=== PATIENT | male | born 1975 | race Caucasian/White ===

== ENCOUNTER 2017-05-21 02:06 | Emergency (ER) | payer BC ==
[2017-05-21 02:32] VITALS: BP 158/88; PULSE 73; TEMP 98.7; BMI 23.7
[2017-05-21] MEDS ORDERED: PENICILLIN V POTASSIUM 500 MG TABLET PO ONE (03:46)
[2017-05-21] MEDS ORDERED: IBUPROFEN 400 MG TABLET (FP) PO ONE ×2 (03:46→04:21)
--- NOTE | 2017-05-21 03:46 | PDOC ---
History of Present Illness - General History Source: Patient - History of Present Illness Initial Comments: 05/21/17 03:48 The patient is a year old male, with a significant past medical history of htn, who presents to the emergency department with sore throat and subjective fever. He reports difficulty swallowing secondary to throat pain. He denies sick contacts. He denies use of OTC medication for his current symptoms. He denies chest pain, shortness of breath, headache and dizziness. He denies chills, nausea, vomit, diarrhea and constipation. He denies dysuria, frequency, urgency and hematuria. Allergies: NKDA <Cherie Van - Last Filed: 05/21/17 03:48> - General History Source: Patient <Juan RamonLev pak - Last Filed: 05/21/17 04:31> - General Chief Complaint: Sore Throat Stated Complaint: THROAT PROBLEM Time Seen by Provider: 05/21/17 03:41 Past History <Cherie Van - Last Filed: 05/21/17 03:48> - Suicide/Smoking/Psychosocial Hx Smoking History: Never smoked Have you smoked in the past 12 months: No Information on smoking cessation initiated: No Hx Alcohol Use: No Drug/Substance Use Hx: No <Lev Cottrell - Last Filed: 05/21/17 04:31> - Past Medical History Allergies/Adverse Reactions: Allergies Allergy/AdvReac Type Severity Reaction Status Date / Time No Known Allergies Allergy Verified 05/21/17 02:30 Home Medications: Ambulatory Orders Ibuprofen 800 mg PO TID #30 tablet 05/21/17 Penicillin V Potassium [Pen Vee K -] 500 mg PO QID #28 tablet 05/21/17 Review of Systems - Review of Systems Able to Perform ROS?: Yes Comments:: 05/21/17 03:48 CONSTITUTIONAL: (+) subjective fever, Absent: chills, diaphoresis, generalized weakness, malaise, loss of appetite HEENT: (+) throat pain, difficulty swallowing, Absent: rhinorrhea, nasal congestion, throat swelling, mouth swelling, ear pain , eye pain, visual Changes CARDIOVASCULAR: Absent: chest pain, syncope, palpitations, irregular heart rate, lightheadedness , peripheral edema RESPIRATORY: Absent: cough, shortness of breath, dyspnea with exertion, orthopnea, wheezing, stridor, hemoptysis GASTROINTESTINAL: Absent: abdominal pain, abdominal distension, nausea, vomiting, diarrhea, constipation, melena, hematochezia GENITOURINARY: Absent: dysuria, frequency, urgency, hesitancy, hematuria, flank pain, genital pain MUSCULOSKELETAL: Absent: myalgia, arthralgia, joint swelling SKIN: Absent: rash, itching, pallor HEMATOLOGIC/IMMUNOLOGIC: Absent: easy bleeding, easy bruising, lymphadenopathy, frequent infections ENDOCRINE: Absent: unexplained weight gain, unexplained weight loss, heat intolerance, cold intolerance NEUROLOGIC: Absent: headache, focal weakness or paresthesias, dizziness, unsteady gait, seizure, mental status changes, bladder or bowel incontinence PSYCHIATRIC: Absent: anxiety, depression, suicidal or homicidal ideation, hallucinations. <Cherie Van - Last Filed: 05/21/17 03:48> *Physical Exam - Vital Signs Last Vital Signs Temp Pulse Resp BP Pulse Ox 98.7 F 73 20 158/88 100 05/21/17 02:30 05/21/17 02:30 05/21/17 02:30 05/21/17 02:30 05/21/17 02:30 - Physical Exam Comments: 05/21/17 03:51 GENERAL: Well developed, well nourished. Awake and alert. No acute distress. HEENT: (+) Bilateral enlarged erythematous tonsils with yellow exudates. No drooling. No hot potato voice. No stridor. Normocephalic, atraumatic. PERRLA, EOMI. No conjunctival pallor. Sclera are non-icteric. Moist mucous membranes. NECK: Supple. Full ROM. No JVD. Carotid pulses 2+ and symmetric, without bruits. No thyromegaly. No lymphadenopathy. CARDIOVASCULAR: Regular rate and rhythm. No murmurs, rubs, or gallops. Distal pulses are 2+ and symmetric. PULMONARY: No evidence of respiratory distress. Lungs clear to auscultation bilaterally. No wheezing, rales or rhonchi. ABDOMINAL: Soft. Non-tender. Non-distended. No rebound or guarding. No organomegaly. Normoactive bowel sounds. MUSCULOSKELETAL Normal range of motion at all joints. No bony deformities or tenderness. No CVA tenderness. EXTREMITIES: No cyanosis. No clubbing. No edema. No calf tenderness. SKIN: Warm and dry. Normal capillary refill. No rashes. No jaundice. NEUROLOGICAL: Alert, awake, appropriate. Cranial nerves 2-12 intact. Normoreflexic in the upper and lower extremities. Normal speech. Toes are down-going bilaterally. Gait is normal without ataxia. PSYCHIATRIC: Cooperative. Good eye contact. Appropriate mood and affect. <Cherie Van - Last Filed: 05/21/17 03:48> - Vital Signs Last Vital Signs Temp Pulse Resp BP Pulse Ox 98.7 F 73 20 158/88 100 05/21/17 02:30 05/21/17 02:30 05/21/17 02:30 05/21/17 02:30 05/21/17 02:30 <Lev Cottrell - Last Filed: 05/21/17 04:31> Medical Decision Making - Medical Decision Making 05/21/17 04:31 Dr. Cottrell: The scribe's documentation has been prepared under my direction and personally reviewed by me in its entirery. I confirm that the note above accurately reflects all work, treatment, procedures, and medical decision making performed by me. <Lev Cottrell - Last Filed: 05/21/17 04:31> *DC/Admit/Observation/Transfer - Attestations Scribe Attestion: 05/21/17 03:51 Documentation prepared by Cherie Van, acting as hospital medical biller for Lev Cottrell DO. <Cherie Van - Last Filed: 05/21/17 03:48> - Discharge Dispostion Admit: No <Lev Cottrell - Last Filed: 05/21/17 04:31> Diagnosis at time of Disposition: Acute pharyngitis Qualifiers: Pharyngitis/tonsillitis etiology: unspecified etiology Qualified Code(s): J02.9 - Acute pharyngitis, unspecified - Discharge Dispostion Disposition: HOME Condition at time of disposition: Stable - Prescriptions Prescriptions: Ibuprofen 800 mg PO TID #30 tablet Penicillin V Potassium [Pen Vee K -] 500 mg PO QID #28 tablet - Referrals Referrals: Nishant Colbert MD [Primary Care Provider] - - Patient Instructions Printed Discharge Instructions: DI for Pharyngitis/Tonsillopharyngitis -- Adult Additional Instructions: Take medication as directed. Follow up with your doctor in two day for re- evaluation of your symptoms - Post Discharge Activity
== END 2017-05-21 04:48 | disposition home or self-care (01) ==
LOC: JER 02:06
DX: J02.9 Acute pharyngitis, unspecified (principal)
CPT/HCPCS: 99281-25

== ENCOUNTER 2021-08-24 17:13 | Observation (INO) | payer BC, OTHER ==
[2021-08-24 18:33] LABS: BASO % 0.5 % (0-2.0); EOS % 2.3 % (0-4.5); HEMATOCRIT 42.6 % (35.4-49); HEMOGLOBIN 14.9 GM/dL (11.7-16.9); LYMPH % 28.2 % (8-40); MCH 29.9 pg (25.7-33.7); MEAN CELL VOLUME 85.5 fl (80-96); MEAN PLT VOLUME 7.4 fl (7.5-11.1); MONO % 8.6 % (3.8-10.2); NEUT % 60.4 % (42.8-82.8); PLATELET COUNT 234 10^3/uL (134-434); RBC 4.98 M/mm3 (4.00-5.60); RDW 13.2 % (11.9-15.9)
[2021-08-24] MEDS ORDERED: SODIUM CHLORIDE 0.9% 500 ML INFUS.BAG IV ONE (18:44)
[2021-08-24 18:59] LABS: BLOOD UREA NITROGEN 16.1 mg/dL (7-18); CALCIUM 9.1 mg/dL (8.5-10.1); MAGNESIUM 2.2 mg/dL (1.8-2.4)
[2021-08-24 19:02] LABS: CREATININE 0.9 mg/dL (0.55-1.3); PHOSPHOROUS 2.9 mg/dL (2.5-4.9)
[2021-08-24 19:04] LABS: BILIRUBIN,TOTAL 0.5 mg/dL (0.2-1); TOT PROT 7.1 g/dl (6.4-8.2)
[2021-08-24] MEDS ORDERED: POTASSIUM CHLORIDE TABS 20 MEQ TABLET.ER (FP) PO ONE ×2 (19:07→19:24)
[2021-08-24] MEDS ORDERED: SODIUM CHLORIDE 1,000 ML IV STA (21:00)
[2021-08-24 22:35] VITALS: BMI 29.9
[2021-08-25] MEDS ORDERED: SODIUM CHLORIDE 1,000 ML IV SCH (07:30)
[2021-08-25 07:35] LABS: HEMATOCRIT 40.8 % (35.4-49); HEMOGLOBIN 14.2 GM/dL (11.7-16.9); MCH 29.6 pg (25.7-33.7); MCHC 34.7 g/dl (32.0-35.9); MEAN CELL VOLUME 85.2 fl (80-96); MEAN PLT VOLUME 7.6 fl (7.5-11.1); PLATELET COUNT 219 10^3/uL (134-434); RBC 4.79 M/mm3 (4.00-5.60); RDW 12.7 % (11.9-15.9); WHITE BLOOD COUNT 6.2 K/mm3 (4.0-10.0)
[2021-08-25 08:01] LABS: CALCIUM 8.3 mg/dL (8.5-10.1); MAGNESIUM 2.2 mg/dL (1.8-2.4)
[2021-08-25 08:02] LABS: BLOOD UREA NITROGEN 10.8 mg/dL (7-18)
[2021-08-25 08:05] LABS: PHOSPHOROUS 3.5 mg/dL (2.5-4.9)
[2021-08-25 08:06] LABS: CREATININE 0.8 mg/dL (0.55-1.3)
[2021-08-25] MEDS ORDERED: POTASSIUM CHLORIDE TABS 20 MEQ TABLET.ER (FP) PO ONE ×2 (08:25→17:07)
[2021-08-25] MEDS ORDERED: HYDROCHLOROTHIAZIDE 25 MG TABLET (FP) PO SCH (10:00)
[2021-08-25] MEDS ORDERED: amLODIPine BESYLATE 5 MG TABLET (FP) PO SCH (10:00)
[2021-08-25] MEDS: KCL 10 MEQ IVPB 10 MEQ/100 ML INFUS.BAG IVPB SCH ×2 (10:05→12:10)
[2021-08-25 15:08] VITALS: BP 147/89; PULSE 77; TEMP 98.2
[2021-08-25 16:19] LABS: BLOOD UREA NITROGEN 14.3 mg/dL (7-18); CALCIUM 8.5 mg/dL (8.5-10.1)
[2021-08-25 16:22] LABS: CREATININE 0.9 mg/dL (0.55-1.3)
== END 2021-08-25 16:55 | disposition home or self-care (01) ==
LOC: JER 17:13 → JERBED 19:09 → J4S 22:00
PROVIDERS: ADMIT Internal Medicine; ATTEND Nurse Practitioner Acute Care
PROC: 3E033GC Introduction of Other Therapeutic Substance into Peripheral Vein, Percutaneous Approach (ICD-10-PCS; principal; 2021-08-24)
PROC: 3E0337Z Introduction of Electrolytic and Water Balance Substance into Peripheral Vein, Percutaneous Approach (ICD-10-PCS; 2021-08-24)
DX: K52.9 Noninfective gastroenteritis and colitis, unspecified (principal); E87.6 Hypokalemia; R55 Syncope and collapse; I10 Essential (primary) hypertension; G40.909 Epilepsy, unspecified, not intractable, without status epilepticus
CPT/HCPCS: 36415; 80048; 80053; 83735; 84100; 84484; 85025; 85027; 86708; 86709; 93005; 93010; 93880-TC; 99285-25; C9803-CS; G0378; U0003; U0005

== ENCOUNTER 2024-02-08 17:22 | Emergency (ER) | payer OTHER ==
[2024-02-08 17:30] VITALS: BP 172/100; PULSE 85; RESP 16; TEMP 98.7; BMI 31.0
[2024-02-08] MEDS ORDERED: KETOROLAC TROMETHAMINE 30 MG/1 ML VIAL ONE (18:22)
[2024-02-08] MEDS ORDERED: CYCLOBENZAPRINE HCL 10 MG TABLET (FP) ONE (18:22)
[2024-02-08] MEDS ORDERED: ACETAMINOPHEN 500 MG TABLET (FP) ONE (18:23)
[2024-02-08] MEDS ORDERED: predniSONE 20 MG TABLET (UD) ONE (18:23)
[2024-02-08] MEDS: CYCLOBENZAPRINE HCL 10 MG TABLET (FP) PO ONE (18:29)
[2024-02-08] MEDS: KETOROLAC TROMETHAMINE 30 MG/1 ML VIAL IM ONE (18:29)
[2024-02-08] MEDS: ACETAMINOPHEN 500 MG TABLET (FP) PO ONE (18:29)
[2024-02-08] MEDS: predniSONE 20 MG TABLET (UD) PO ONE (18:29)
== END 2024-02-08 18:50 | disposition home or self-care (01) ==
LOC: JERFT 17:22
PROC: 3E0133Z Introduction of Anti-inflammatory into Subcutaneous Tissue, Percutaneous Approach (ICD-10-PCS; principal; 2024-02-08)
DX: M54.2 Cervicalgia (principal); M25.512 Pain in left shoulder; G89.29 Other chronic pain
CPT/HCPCS: 93005; 93010; 99284-25